=== PATIENT | male | born 2005 | race Two or more races ===

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

== ENCOUNTER 2025-06-17 01:59 | Emergency (ER) | payer MEDICAID ==
[~2025-06-17] VITALS: Ht 167.6 cm; Wt 72.6 kg
[2025-06-17] MEDS ORDERED: ACETAMINOPHEN 325 MG TABLET ONE (03:08)
[2025-06-17] MEDS: ACETAMINOPHEN 325 MG TABLET PO ONE (03:11)
[2025-06-17 04:10] VITALS: BP 118/76; TEMP 98.6; O2SAT 95
== END 2025-06-17 04:10 | disposition left against medical advice (07) ==
LOC: ER 02:04
DX: S09.8XXA Other specified injuries of head, initial encounter (principal); F10.129 Alcohol abuse with intoxication, unspecified; Y04.0XXA Assault by unarmed brawl or fight, initial encounter; Y93.89 Activity, other specified; Y92.89 Other specified places as the place of occurrence of the external cause; Y99.8 Other external cause status; Y90.9 Presence of alcohol in blood, level not specified
CPT/HCPCS: 99284; 72125; 70450; 70486; L0172

== ENCOUNTER 2025-10-17 21:46 | Emergency (ER) | payer MEDICAID ==
[~2025-10-17] VITALS: Ht 167.6 cm; Wt 72.6 kg
[2025-10-17 23:08] VITALS: BP 144/74; TEMP 98; O2SAT 99
[2025-10-17] MEDS ORDERED: TDAP [DIPH/PERTUSSIS/TET] 0.5 ML VIAL IM ONE (23:35)
[2025-10-17] MEDS: TDAP [DIPH/PERTUSSIS/TET] 0.5 ML VIAL IM ONE (23:36)
[2025-10-17] MEDS ORDERED: IBUP-2314 PO (23:44)
[2025-10-17] MEDS ORDERED: ACET-3102 PO (23:44)
== END 2025-10-18 00:41 | disposition home or self-care (01) ==
LOC: ER 21:51
DX: M79.641 Pain in right hand (principal); F17.200 Nicotine dependence, unspecified, uncomplicated
CPT/HCPCS: 73130-TC; 90715